=== PATIENT | male | born 1980 | race Caucasian/White ===

== ENCOUNTER 2017-09-15 11:40 | Emergency (ER) | payer OTHER ==
--- NOTE | 2017-09-15 12:55 | ED Physician Documentation ---
PD HPI ABD PAIN - Stated complaint Stated Complaint: AB PX - Chief complaint Chief Complaint: Abd Pain - History obtained from History obtained from: Patient - History of Present Illness Timing - onset: How many weeks ago (1 week of GI bleeding. Seen at [facility] after vomiting blood. Was there for 3 days with decrease in bleeding and stopped, had NG tube and sequential blood counts. CT showed likely local perforation duodenal ulcer (inflammation locally with some local free fluid). Was to get EGD and possible surgery but his insurance from [place] wanted him to return home for scope and any possible surgery. Discharged stable 3 days ago. Noted an episode of hematemesis coffee ground last night and dark stool once this morning. No further vomiting. He is arranging plane flight back home ( was intended to return in a month, so has to change plane tickets) and needs doctor note for clearance for flying. He will fly home earliest in 2-3 days as will take that to arrange flights.) Timing - details: Abrupt onset, Intermittant (was stopped but then with single hematemesis last night. Feels okay today. Still with stomach pain ongoing even when discharged from hospital few days ago.) Quality: No: Cramping, Aching Location: Epigastric Radiation: No: Lower back, Upper back Worsened by: Eating Associated symptoms: Nausea, Hematemesis, Melena Similar symptoms before: Diagnosis (duodenal ulcer) Recently seen: Not recently seen Review of Systems Constitutional: denies: Fever, Chills Nose: denies: Rhinorrhea / runny nose, Congestion Throat: denies: Sore throat Respiratory: denies: Cough GI: denies: Abdominal Swelling, Diarrhea Neurologic: denies: Generalized weakness, Near syncope PD PAST MEDICAL HISTORY - Past Medical History Past Medical History: Yes GI: Ulcers Psych: Post traumatic stress disorder Musculoskeletal: Gout - Past Surgical History Past Surgical History: No - Present Medications Home Medications: Ambulatory Orders Medication Instructions Recorded Confirmed Amoxicillin/Potassium Clav 1 tab PO BID 09/15/17 [Amox-Clav 875-125 mg Tablet] Lidocaine Viscous 2% [Xylocaine 5 ml PO Q4H PRN #1 bottle 09/15/17 Viscous 2%] Mirtazapine 30 mg PO DAILY 09/15/17 Oxycodone HCl/Acetaminophen 1 each PO Q6H PRN #20 tablet 09/15/17 [Percocet 5-325 mg Tablet] Pantoprazole Sodium 40 mg PO BID 09/15/17 QUEtiapine [SEROquel] 50 mg PO DAILY 09/15/17 Sucralfate 1 gm PO QID #40 tablet 09/15/17 - Allergies Allergies/Adverse Reactions: Allergies Allergy/AdvReac Type Severity Reaction Status Date / Time No Known Drug Allergies Allergy Verified 09/15/17 11:50 - Social History Does the pt smoke?: Yes Smoking Status: Current every day smoker PD ED PE NORMAL - Vitals Vital signs reviewed: Yes - General General: Alert and oriented X 3, No acute distress, Well developed/nourished - HEENT HEENT: PERRL - Neck Neck: Supple, no meningeal sign, No adenopathy - Cardiac Cardiac: RRR, No murmur - Respiratory Respiratory: Clear bilaterally - Abdomen Abdomen: Normal bowel sounds, Soft, Non distended, No organomegaly, Other (mild epigastric without peritoneal signs. ) - Derm Derm: Normal color, Warm and dry - Extremities Extremities: No deformity, No tenderness to palpate, No edema, No calf tenderness / cord - Neuro Neuro: Alert and oriented X 3, No motor deficit, Normal speech Results - Vitals Vitals: Oxygen O2 Source Room air - Labs Labs: Laboratory Tests 09/15/17 09/15/17 14:26 14:26 WBC 9.6 RBC 4.88 Hgb 14.5 Hct 42.7 MCV 87.5 MCH 29.7 MCHC 34.0 RDW 14.2 Plt Count 486 H MPV 7.2 L Neut # 5.3 Lymph # 3.4 Guthrie # 0.5 Eos # 0.2 Baso # 0.1 Absolute Nucleated RBC 0.00 Nucleated RBC % 0.0 Sodium 138 Potassium 3.8 Chloride 99 L Carbon Dioxide 25 Anion Gap 14.0 H BUN 13 Creatinine 0.9 Estimated GFR (MDRD) 94 Glucose 96 Calcium 10.1 Total Bilirubin 0.5 AST 31 ALT 47 Alkaline Phosphatase 65 Total Protein 8.3 H Albumin 4.6 Globulin 3.7 Albumin/Globulin Ratio 1.2 Lipase 36 PD MEDICAL DECISION MAKING - ED course Complexity details: reviewed old records (got discharge packet from [facility] and CBC counts. His blood count is higher than time of discharge (started at 13 Hgb , down to 11.8, and is now 14). So despite some melena still, he does seem stable. It will be a day or two to get travel arrangements back to [facility], so time to see degree of ongoing output. Gave letter for okay to travel, though is hard to guarantee won't have worsening of symptoms during that 23 hour period of travel. ), reviewed results, considered differential, d/w patient Departure - Departure Disposition: 01 Home, Self Care Clinical Impression: Gastritis Qualifiers: Gastritis type: other gastritis Chronicity: acute Gastritis bleeding: with bleeding Qualified Code(s): K29.01 - Acute gastritis with bleeding GI bleed Qualifiers: GI bleed type/associated pathology: gastric ulcer Qualified Code(s): K25.4 - Chronic or unspecified gastric ulcer with hemorrhage Condition: Stable Record reviewed to determine appropriate education?: Yes Instructions: ED Gastritis, ED Bleed UGI Stable Prescriptions: Lidocaine Viscous 2% [Xylocaine Viscous 2%] 5 ml PO Q4H PRN #1 bottle PRN Reason: Pain Oxycodone HCl/Acetaminophen [Percocet 5-325 mg Tablet] 1 each PO Q6H PRN #20 tablet PRN Reason: Pain Sucralfate 1 gm PO QID #40 tablet Comments: Your blood count today is increased from when you are discharged from [facility]. It does not look like you are losing too much blood therefore. Your blood pressure is okay as well. I would therefore think it is stable enough for flying. However see how you do over the next day or 2 before flying since it will take a little bit of time to set up. If you have worsened bloody stool or repetitive vomiting of blood than recheck. Right now continue the medications prescribed from [facility] and add sucralfate which will coat the stomach and continue the pain medications as needed. Forms: Activity restrictions Discharge Date/Time: 09/15/17 15:50
[2017-09-15] MEDS ORDERED: oxyCOD/ACETAMIN 5 MG/325 MG TABLET PO STA (14:00)
[2017-09-15] MEDS ORDERED: SUCRALFATE 1 GM/10 ML UDC PO STA (14:00)
[2017-09-15 14:36] LABS: BASOPHILS # (AUTO) 0.1 10^3/uL (0.0-0.1); EOSINOPHILS # (AUTO) 0.2 10^3/uL (0.0-0.7); EOSINOPHILS % (AUTO) 2.4 %; HGB - HEMOGLOBIN 14.5 g/dL (14.0-18.0); LYMPHOCYTES # (AUTO) 3.4 10^3/uL (1.5-3.5); LYMPHOCYTES % (AUTO) 35.3 %; MEAN CORPUSCULAR HEMOGLOBIN 29.7 pg (27.0-31.0); MEAN CORPUSCULAR VOLUME 87.5 fL (80.0-94.0); MEAN PLATELET VOLUME 7.2 fL (7.4-11.4); MONOCYTES # (AUTO) 0.5 10^3/uL (0.0-1.0); MONOCYTES % (AUTO) 5.6 %; NEUTROPHILS # (AUTO) 5.3 10^3/uL (1.5-6.6); NEUTROPHILS % (AUTO) 55.7 %; PLT - PLATELET COUNT 486 10^3/uL (130-450); RED BLOOD COUNT 4.88 10^6/uL (4.70-6.10); RED CELL DISTRIBUTION WIDTH 14.2 % (12.0-15.0); WHITE BLOOD COUNT 9.6 x10^3/uL (4.8-10.8)
[2017-09-15 14:51] LABS: ALBUMIN 4.6 g/dL (3.2-5.5); ALBUMIN/GLOBULIN RATIO 1.2 (1.0-2.2); BILIRUBIN,TOTAL 0.5 mg/dL (0.2-1.0); CALCIUM 10.1 mg/dL (8.5-10.3); CREATININE 0.9 mg/dL (0.6-1.2); TOTAL PROTEIN 8.3 g/dL (6.7-8.2)
[2017-09-15 15:41] VITALS: BP 145/87
== END 2017-09-15 15:50 | disposition home or self-care (01) ==
LOC: ED 11:40
DX: K25.4 Chronic or unspecified gastric ulcer with hemorrhage (principal); K29.01 Acute gastritis with bleeding; F17.200 Nicotine dependence, unspecified, uncomplicated
CPT/HCPCS: 36415; 80053; 83690; 85025; 99283; A9270